=== PATIENT | female | born 1960 | race Two or more races ===

== ENCOUNTER 2024-10-05 05:50 | Inpatient (IN) | payer OTHER ==
[2024-09-28 08:29] VITALS: BP 128/84
[2024-09-28 09:05] LABS: COVID-19 AG NEGATIVE (NEGATIVE)
[2024-09-28 09:22] LABS: RH POSITIVE
[~2024-10-05] VITALS: Ht 152.4 cm; Wt 56.7 kg
[~2024-10-05 05:50] MED LIST: ALENDRONATE SOD10 MG; LEVOTHYROXINE75 MC1 PO; MULTIPLE VITAM1 EAC2 PO; PROTONIX20 MG PO; TRICOR145 MG
[2024-10-05] MEDS ORDERED: METRONIDAZOLE/SODIUM CHLORIDE 500 MG/100 ML PIGGYBACK IV ONE (13:15)
[2024-10-05] MEDS ORDERED: CEFTRIAXONE SODIUM 2,000 MG VIAL IV ONE (13:15)
[2024-10-05] MEDS ORDERED: KETOROLAC TROMETHAMINE 30 MG VIAL IV ONE (14:00)
[2024-10-05] MEDS ORDERED: RINGERS SOLUTION,LACTATED 1,000 ML IV SCH (14:00)
[2024-10-05] MEDS ORDERED: MORPHINE SULFATE 4 MG/ML CARTRIDGE IV PRN (14:00)
[2024-10-05] MEDS ORDERED: OxyCODONE HCL 5 MG TABLET (ROXICODONE) PO PRN (14:00)
[2024-10-05] MEDS ORDERED: METOCLOPRAMIDE HCL 5 MG/ML VIAL IV SCH (17:00)
[2024-10-05] MEDS ORDERED: SIMETHICONE 125 MG CAPSULE PO SCH (17:00)
[2024-10-05] MEDS ORDERED: CEFAZOLIN SODIUM 1,000 MG VIAL IV SCH (17:00)
[2024-10-05 17:04] LABS: BASO % 0.4 % (0.1-1.2); EOS # 0.20 (0.04-0.54); EOS % 2.4 % (0.7-7.0); LYMPH # 1.73 (1.18-3.74); LYMPH % 20.6 % (19.3-53.1); MEAN PLATELET VOLUME 11.20 fl (9.4-12.4); MONO # 0.35 (0.24-0.82); MONO % 4.2 % (4.7-12.5); NEUT # 6.03 (1.56-6.13); NEUT % 71.9 % (34.0-71.1); RED CELL DISTRIBUTION WIDTH 14.9 % (11.6-14.4)
[2024-10-05 17:26] LABS: BUN CREA RATIO 19.0 (7.0-25.0); CREATININE SERUM 0.77 mg/dL (0.55-1.02); GFR 75.96; GLUCOSE FASTING 104.0 mg/dL (65-100); OSMOLALITY SERUM 288.0 MOSM/KG (275-295)
[2024-10-05 17:57] VITALS: BP 94/60
[2024-10-05] MEDS ORDERED: ACETAMINOPHEN 500 MG GEL..CAP PO SCH (18:00)
[2024-10-05 18:28] VITALS: BP 94/60; O2SAT 98
[2024-10-05] MEDS ORDERED: GABAPENTIN 300 MG CAPSULE PO SCH (21:00)
[2024-10-05] MEDS ORDERED: FAMOTIDINE/PF 20 MG/2 ML VIAL IV PUSH SCH (21:00)
[2024-10-05] MEDS ORDERED: DOCUSATE SODIUM 100MG CAP PO SCH (21:00)
[2024-10-05] MEDS ORDERED: CELECOXIB 200 MG CAPSULE PO SCH (21:00)
[2024-10-06 00:42] VITALS: BP 108/61; O2SAT 95
[2024-10-06 02:42] LABS: BASO % 0.3 % (0.1-1.2); EOS # 0.12 (0.04-0.54); EOS % 1.3 % (0.7-7.0); LYMPH # 1.89 (1.18-3.74); LYMPH % 20.0 % (19.3-53.1); MEAN PLATELET VOLUME 11.00 fl (9.4-12.4); MONO # 0.56 (0.24-0.82); MONO % 5.9 % (4.7-12.5); NEUT # 6.85 (1.56-6.13); NEUT % 72.3 % (34.0-71.1); RED CELL DISTRIBUTION WIDTH 14.7 % (11.6-14.4)
[2024-10-06 03:05] LABS: BUN CREA RATIO 18.0 (7.0-25.0); CREATININE SERUM 0.66 mg/dL (0.55-1.02); GFR 90.75; GLUCOSE FASTING 99.0 mg/dL (65-100); OSMOLALITY SERUM 290.0 MOSM/KG (275-295)
[2024-10-06] MEDS ORDERED: LEVOTHYROXINE SODIUM 75 MCG TABLET PO SCH (06:00)
[2024-10-06 08:34] VITALS: BP 90/50; O2SAT 97
[2024-10-06] MEDS ORDERED: ENOXAPARIN SODIUM 40 MG/0.4 ML SYRINGE SUBCUTANEO SCH (17:00)
== END 2024-10-06 12:02 | disposition home or self-care (01) | DRG 743 ==
LOC: CIR.AMB 05:50 → OB/GYN 15:22
PROVIDERS: Obstetrics & Gynecology; ADMIT Obstetrics & Gynecology Gynecologic Oncology; ATTEND Obstetrics & Gynecology Gynecologic Oncology
PROC: 0UT14ZZ Resection of Left Ovary, Percutaneous Endoscopic Approach (ICD-10-PCS; 2024-10-05)
PROC: 0DNW4ZZ Release Peritoneum, Percutaneous Endoscopic Approach (ICD-10-PCS; 2024-10-05)
PROC: 0UT74ZZ Resection of Bilateral Fallopian Tubes, Percutaneous Endoscopic Approach (ICD-10-PCS; principal; 2024-10-05 10:15)
DX: D27.1 Benign neoplasm of left ovary (principal)